=== PATIENT | female | born 1940 | race African-American/Black ===

== ENCOUNTER 2018-12-18 01:52 | Emergency (ER) | payer OTHER ==
[~2018-12-18] VITALS: Ht 160 cm; Wt 73.0 kg
[2018-12-18] MEDS ORDERED: KETOROLAC 30MG/ML VIAL IM ONE (02:30)
[2018-12-18] MEDS ORDERED: MORPHINE SULFATE 10 MG/ML CPJ IM ONE (03:45)
[2018-12-18] MEDS ORDERED: ONDANSETRON 4MG ODT PO ONE (03:45)
[2018-12-18 06:15] VITALS: BP 138/70
== END 2018-12-18 06:35 | disposition home or self-care (01) ==
LOC: ER 01:52
DX: G89.29 Other chronic pain (principal); M54.5 Low back pain; I10 Essential (primary) hypertension; Z88.5 Allergy status to narcotic agent
CPT/HCPCS: 96372; 99283; J1885; J2270; Q0162